=== PATIENT | male | born 1960 | race Hispanic/Latino ===

== ENCOUNTER 2024-05-04 19:01 | Emergency (ER) | payer BC, MEDICARE, SELFPAY ==
[2024-05-04 19:41] LABS: Urine Albumin 1+ (Neg - Trace); Urine Bilirubin Negative (Negative); Urine Character Clear (Clear); Urine Color Yellow; Urine Glucose Negative (Negative); Urine Ketone Negative (Negative); Urine Leukocyte Negative (Negative); Urine Nitrite Negative (Negative); Urine Occult Blood Negative (Negative); Urine Urobilinogen 2+ (Neg - 1+)
[2024-05-04 19:45] LABS: % Eosinophils 6.9 % (0-6); % Immature Granulocytes 0.1 % (0-0.5); % Lymphocytes 33.6 % (20.5-51.1); % Neutrophils 49.4 % (42.2-75.2); Absolute Basophils 0.1 10^3/uL (0-0.2); Absolute Eosinophils 0.5 10^3/uL (0-0.7); Absolute Lymphocytes 2.3 10^3/uL (1.2-3.4); Absolute Monocytes 0.6 10^3/uL (0.1-0.6); Absolute Neutrophils 3.4 10^3/uL (1.4-6.5); Hematocrit 41.1 % (39.0-52.0); Hemoglobin 13.5 g/dL (13.0-18.0); Mean Corp Hgb Conc. 32.8 g/dL (33.0-37.0); Mean Corpuscular Hgb 28.5 pg (27.0-31.0); Mean Corpuscular Volume 86.7 fL (80.0-94.0); Nucleated Red Blood Cells % 0 % (-); Platelet Count 283 10^3/uL (130-400); Red Blood Cell Count 4.74 10^6/uL (4.70-6.10); Red Cell Dist. Width 13.4 % (11.5-14.5); White Blood Cell Count 6.9 10^3/uL (4.8-10.8)
[2024-05-04 19:52] LABS: Urine Squamous Cell 0-2 /LPF (Few)
[2024-05-04 19:53] LABS: Urine Bacteria Few (Negative); Urine Red Blood Cell 0-2 /HPF (0-2); Urine White Cell 0-2 /HPF (0-5)
[2024-05-04 20:13] LABS: ALT (SGPT) 20 U/L (0-50); AST (SGOT) 30 U/L (17-59); Albumin 4.4 g/dl (3.5-5.0); Alkaline Phosphatase 53 U/L (38-126); Blood Urea Nitrogen 23 mg/dl (9-20); Calcium 9.5 mg/dl (8.4-10.2); Carbon Dioxide 27 mmol/L (22-30); Chloride 108 mmol/L (98-107); Glucose 99 mg/dl (70-99); Potassium 4.4 mmol/L (3.5-5.1); Sodium 142 mmol/L (135-145); Total Bilirubin 0.5 mg/dl (0.2-1.3); Total Protein 7.7 g/dl (6.3-8.2); eGFR > 60.00
--- NOTE | 2024-05-04 20:59 | ED.GENMED ---
History of Present Illness
General
Chief Complaint: Abdominal Symptoms
Time Seen by Provider: 05/04/24 20:57
Review of Systems
Review of Systems
All Other Systems: ROS reviewed and negative except as documented in HPI and ROS
Course
Orders/Labs/Results
Orders:
Orders
05/04/24 19:11
Electrocardiogram (*1) Urgent
Reason for Study: Abdominal Pain
EKG- Treatment ONCE
IV Insert/Care/Rem.- Treatment PRN
05/04/24 19:33
Complete Blood Count/With Diff Urgent
Comprehensive Metabolic Panel Urgent
Lipase Urgent
Urinalysis Reflex To Culture Urgent
Date Specimen was Collected: 05/04/24
Time Specimen was Collected: 19:11
Urine Microscopic Reflex Cult Urgent
Abnormal Lab Results
05/04/24
19:33
MCHC 32.8 L g/dL
(33.0-37.0)
MPV 11.0 H fL
(7.4-10.4)
Eosinophils % 6.9 H %
(0-6)
Chloride 108 H mmol/L
(98-107)
BUN 23 H mg/dl
(9-20)
Urine Urobilinogen 2+ A
(Neg - 1+)
Urine Bacteria (Reflex) Few A
(Negative)
Urine Albumin (Reflex) 1+ A
(Neg - Trace)
05/04/24 19:33
05/04/24 19:33
Vital Signs
Initial and Last Documented VS:
Initial Vital Signs
Temp Pulse Ox
98.7 F 99
05/04/24 19:08 05/04/24 19:08
Last Documented Vital Signs
Temp Pulse Ox
98.7 F 99
05/04/24 19:08 05/04/24 19:08
ED Attending Note
-
Portions of this chart may have been created with voice recognition software.� Occasional wrong word or��sound alike� substitutions may have occurred due to the inherent limitations of voice recognition software.
Discharge Plan
Interventions
Interventions:
*Risk Screen - Suicide Last Done: 05/04/24 19:02
*General Assessment Last Done: 05/04/24 19:08
*Neglect/Abuse Screening Last Done: 05/04/24 19:08
*ED COVID-19 Vaccine History Last Done: 05/04/24 19:08
Discharge Date and Time
Print Language: CITIZEN OF [place]
[2024-05-04 21:01] VITALS: BP 130/84; BMI 27.8
[2024-05-04 21:23] LABS: Lipase 126 U/L (23-300)
[2024-05-04 22:00] VITALS: BP 111/75
--- NOTE | 2024-05-04 22:35 | ED.GENMED ---
History of Present Illness
General
Chief Complaint: Abdominal Symptoms
Source: patient
Exam Limitations: none
Time Seen by Provider: 05/04/24 20:57
Nursing documentation reviewed up to this point in time: agreed with
History of Present Illness
History of Present Illness:
This is a 64-year-old male with a past medical history of hypertension, hyperlipidemia, renal cancer status post partial right nephrectomy who presents emergency department today with concerns of vomiting, nausea, and abdominal pain that started
last night. Patient reports that he ate a salad and states that his symptoms started acutely after that. Patient reports that he had around 2 episodes of vomiting last night. Patient states that he has not had any episodes of vomiting today but
states that he has had generalized epigastric to left-sided abdominal discomfort. Patient states that he did try to eat something today but he came very nauseated and could not tolerate finishing the meal. He denies any burning with urination. He
denies any abdominal surgeries other than nephrectomy. He states that he has been having normal bowel movements. He denies any radiation of the pain into the chest. Does have a history of GERD which he will take Tums as needed and he is not on a
daily PPI.
Review of Systems
Review of Systems
All Other Systems: ROS reviewed and negative except as documented in HPI and ROS
Phy Exam
Physical Exam
Physical Exam:
General: Patient is well appearing and in no acute distress; non-toxic
Skin: Warm and dry, no rashes or lesions
Head: Normocephalic, atraumatic
Eyes: Sclera non-icteric. EOMs intact.
Cardiac: Regular rate and rhythm, no murmurs
Peripheral Vascular: No lower extremity swelling or edema
Pulm: Normal respiratory effort, no wheezes, rales, rhonchi
Abdomen: 3 surgical scars noted on abdomen, generalized epigastric discomfort to palpation with left lower quadrant tenderness to palpation as well, no palpable masses, normoactive bowel sounds
Neuro: CN II-XII intact, no focal neurologic deficits.
Psychiatric: Appropriate mood and affect.
Course
Orders/Labs/Results
Orders:
Orders
05/04/24 19:11
Electrocardiogram (*1) Urgent
Reason for Study: Abdominal Pain
EKG- Treatment ONCE
IV Insert/Care/Rem.- Treatment PRN
05/04/24 19:33
Complete Blood Count/With Diff Urgent
Comprehensive Metabolic Panel Urgent
Lipase Urgent
Urinalysis Reflex To Culture Urgent
Date Specimen was Collected: 05/04/24
Time Specimen was Collected: 19:11
Urine Microscopic Reflex Cult Urgent
05/04/24 22:18
CT Abd/pelvis W Iv Cont Urgent
Comment:
Reason For Exam: upper abdominal bloating, LLQ pain
0.9% Sodium Chloride 500 ml [Nss] 500 ml IV BOLUS
Ondansetron Injectable [Zofran] 4 mg IV NOW STA
Pantoprazole [Protonix IV] 40 mg IV NOW STA
Abnormal Lab Results
05/04/24
19:33
MCHC 32.8 L g/dL
(33.0-37.0)
MPV 11.0 H fL
(7.4-10.4)
Eosinophils % 6.9 H %
(0-6)
Chloride 108 H mmol/L
(98-107)
BUN 23 H mg/dl
(9-20)
Urine Urobilinogen 2+ A
(Neg - 1+)
Urine Bacteria (Reflex) Few A
(Negative)
Urine Albumin (Reflex) 1+ A
(Neg - Trace)
05/04/24 19:33
05/04/24 19:33
Vital Signs
Initial and Last Documented VS:
Initial Vital Signs
Temp Pulse Ox
98.7 F 99
05/04/24 19:08 05/04/24 19:08
Last Documented Vital Signs
Temp Pulse Resp BP Pulse Ox
98.4 F 50 16 119/86 99
05/04/24 21:01 05/04/24 21:01 05/04/24 21:01 05/04/24 23:00 05/04/24 23:00
MDM/Problems Addressed
Differential Diagnosis Includes:
Differentials include GERD, ACS, diverticulitis, colitis, gastroenteritis, foodborne illness
MDM/Problems Addressed:
This a 64-year-old male with past medical history of hypertension, hyperlipidemia, renal cancer who presents emergency department today with concerns of abdominal pain. It started after eating a salad last night. Patient states that he also has
associated vomiting. He has not had any episodes of vomiting while here in emergency department. On physical exam he is afebrile and well-appearing in no acute distress. Does have some tenderness palpation generalized on the left side of the
abdomen. His CBC and CMP are unremarkable. His urinalysis does not show any signs of infection. His CAT scan of the abdomen shows a focal dilation of small bowel loop in the left mid abdomen which measures up to 3.2 cm proximal to a 15 to 20 cm
segment of small bowel health enhancement suspicious for 4 enteritis. Patient is not clinically obstructed however did call Dr. Wad[facility] regarding this finding she states that this finding is not usually seen with a small bowel
obstruction. Discussed patient that he likely has an infectious enteritis and discussed conservative management. Advised patient to follow-up with his primary 1 to 2 weeks to ensure resolution of his symptoms, return precautions discussed, patient
tolerating oral intake including food and water without vomiting upon discharge and feeling well.
Chronic conditions affecting care:
Hypertension, hyperlipidemia
*Pulse Oximetry
Patient hypoxic: no
*Critical Care Note
Total Time (30-74mins, 75-104mins- exclusive of procedures): Not Applicable
Data Reviewed
Review of Other/Old Records Reveals: Records (Reviewed [facility], no previous ER physician documentation or discharge summaries to review)
ED Attending Note
-
Portions of this chart may have been created with voice recognition software.� Occasional wrong word or��sound alike� substitutions may have occurred due to the inherent limitations of voice recognition software.
Discharge Plan
Departure
Patient Disposition: Home (Routine Discharge)
Date of Disposition: 05/05/24
Time of Disposition: 01:02
Patient with high blood pressure during this ER visit?: Yes
Condition: Good
Discharge Problem:
Enteritis, Abdominal pain
Instructions: Viral gastroenteritis in adults
Referrals:
UNKNOWN - PT DOES,NOT KNOW [Family Provider] -
Stand Alone Forms: Return to Work
Activity Restrictions/Additional Instructions:
Your CT scan demonstrates enteritis with no evidence of diverticulitis.
Your CBC and CMP blood work are unremarkable.
Please continue to monitor your symptoms and stay well-hydrated. You can alternate Tylenol and Motrin for pain.
Please follow-up with your primary care provider in 1 to 2 weeks.
PLEASE RETURN EMERGENCY DEPARTMENT SHOULD YOU DEVELOP ACUTE WORSENING OF YOUR SYMPTOMS, INTRACTABLE NAUSEA OR VOMITING, FEVERS OR CHILLS, RECTAL BLEEDING, DARK TARRY STOOLS, CHEST PAIN, SHORTNESS OF BREATH, OR ANY OTHER SIGNS OR SYMPTOMS WORRISOME
TO YOU.
Interventions
Interventions:
*Risk Screen - Suicide Last Done: 05/04/24 19:02
*General Assessment Last Done: 05/04/24 21:01
*Neglect/Abuse Screening Last Done: 05/04/24 19:08
*ED- Fall Risk Assessment Last Done: 05/04/24 21:01
*ED COVID-19 Vaccine History Last Done: 05/04/24 19:08
*Nursing Disposition Last Done: 05/05/24 01:27
DP-Ueornk-Xzqdprixdh Assessment Last Done: 05/04/24 21:01
Discharge Date and Time
Discharge Date/Time: 05/05/24 01:27
Print Language: [place]
[2024-05-04] MEDS: NSS 500 IV (22:42)
[2024-05-04] MEDS: PROTONIX IV 40 MG IV (22:45)
[2024-05-04] MEDS: ZOFRAN 4 MG IV (22:46)
[2024-05-04 23:00] VITALS: BP 119/86
--- NOTE | 2024-05-05 01:00 | EDRN ---
Patient tolerated oral intake, hope, PA back in to reassess patient to be discharge home
== END 2024-05-05 01:27 | disposition home or self-care (01) ==
LOC: EMR 19:01
PROVIDERS: Emergency Medicine; EMERGENCY PHYSICIAN Student in an Organized Health Care Education/Training Program
DX: K52.9 Noninfective gastroenteritis and colitis, unspecified (principal); R10.9 Unspecified abdominal pain; E78.00 Pure hypercholesterolemia, unspecified; I10 Essential (primary) hypertension; K21.9 Gastro-esophageal reflux disease without esophagitis; I24.9 Acute ischemic heart disease, unspecified; Z85.528 Personal history of other malignant neoplasm of kidney; Z90.5 Acquired absence of kidney
CPT/HCPCS: 99284; 96374; 96375; 74177; 80053; 81003; 81015; 83690; 85025; 93005; Q9967